=== PATIENT | male | born 1955 | race Caucasian/White ===

== ENCOUNTER → 2017-12-05 | Outpatient (CLI) | payer OTHER | LOC: CIMAGING 14:13 | PROVIDERS: ATTEND Family Medicine | DX: R91.1 Solitary pulmonary nodule (principal); G43.809 Other migraine, not intractable, without status migrainosus | CPT/HCPCS: 71250-PO ==

== ENCOUNTER → 2018-12-22 | Outpatient (CLI) | payer OTHER | LOC: CIMAGING 08:34 ==